=== PATIENT | female | born 1985 | race Caucasian/White ===

== ENCOUNTER 2024-10-23 11:01 | Emergency (ER) | payer MEDICAID, SELFPAY ==
[2024-10-23 11:09] VITALS: BP 113/64; PULSE 67; RESP 18; TEMP 36.6; O2SAT 98; BMI 28.1
--- NOTE | 2024-10-23 11:12 | ED.FEMALEGU ---
HPI - Female Genitourinary General Time Seen by Provider: 11:12 Date Seen: 10/23/24 Chief complaint: Urogenital Problems, Female Stated complaint: IUD, cramps, need taken out? Time Seen by Provider: 10/23/24 11:03 Source: patient and RN notes reviewed Mode of arrival: ambulatory Limitations: no limitations History of Present Illness HPI Narrative: This 39-year-old female is coming into the ER with increased right lower quadrant pain with IUD placement. The cramping in pain is making her nauseated. She has had no fevers or chills. She had her IUD placed August 13 due to bleeding issues, has had ongoing spotting and cramping since placed. She has not done any IUD string checks. She has had no bowel changes such as diarrhea. No vomiting, no fevers or chills, change in urination. She states she wanted the IUD removed since it was placed, it is not helping. Symptoms for her per her report. She had no difficulty with this being placed per her report, was not significantly painful for her. Related Data Home Medications ?Medication ?Instructions ?Recorded ?Confirmed buspirone 10 mg tablet 10 mg PO BID 10/23/24 10/23/24 hydroxyzine pamoate 50 mg capsule 50 mg PO QHS 10/23/24 10/23/24 topiramate 100 mg tablet (Topamax) 100 mg PO QHS 10/23/24 10/23/24 Allergies Allergy/AdvReac Type Severity Reaction Status Date / Time ibuprofen Allergy Intermediate Hives Verified 10/23/24 11:18 ciprofloxacin Allergy Hives Verified 10/23/24 11:18 Review of Systems Narrative: As per HPI. Exam Const: Vital Signs, click to edit/add: Vital Signs - 24 hr 10/23/24 11:09 Temperature 97.9 F Pulse Rate [Pulse Oximeter] 67 Respiratory Rate 18 Blood Pressure [Ri ght Upper Arm] 113/64 Pulse Oximetry 98 Oxygen Delivery Me thod Room Air This 39-year-old female is alert, interactive, no apparent distress. Ambulatory into the ED with normal gait. Sclera clear, face atraumatic, able speak in complete sentences. Abdomen is soft, nontender, nondistended. Bimanual exam reveals some mild right pelvic discomfort but no rebound or guarding, question if there is maybe a little bit of fullness to this right ovary, uterus nontender, midline, no left lower quadrant tenderness or masses noted. Normal external genitalia without any rash or lesions, vaginal mucosa has a scant amount of darkish blood. Cervix is visualized, cannot see any strings, no active bleeding noted. Did take a small Q-tip and cannot pull any strings out of the endocervical canal. Bimanual exam does not feel any palpable strings either. Documenting provider has reviewed patient's vital signs: yes Course Course ED Course: Patient does need to proceed with pelvic ultrasound for both IUD placement as well as rule out right ovarian cyst. If pelvic ultrasound is completely normal, will consider other entities and consider lab work and CT imaging. Reevaluation(s) Time of Reevaluation #1: 12:15 Reevaluation #1: Have reviewed with the patient that the preliminary ultrasound per the manager net is that the IUD is in place, normal ovaries, no ovarian cyst. She has not had appendectomy, did discuss that appendix is a consideration with right lower quadrant pain. She would like to proceed with CT imaging and lab work. She understands that she will need an IV placed as a CT does require IV contrast. Time of Reevaluation #2: 13:27 Reevaluation #2: Provided patient a copy of her CT and did review this. There is no acute intra-abdominal pathology. She does have 2 undefined areas on her liver which follow-up outpatient imaging is recommended, again, given a copy of the CT to bring to her primary care provider. She did state that she needs to know everything she was given here, is on parole. Reviewed the only medicine given was actually not technically a medicine but IV contrast for her CT imaging. She will need to follow up with her OB Gyne specialist for removal of her IUD. Vital Signs Vital signs: Initial Vital Signs Temperature 97.9 F 10/23/24 11:09 Temperature Source Temporal Artery Scan 10/23/24 11:09 Pulse Rate 67 10/23/24 11:09 Respiratory Rate 18 10/23/24 11:09 Blood Pressure 113/64 10/23/24 11:09 Blood Pressure Mean 80 10/23/24 11:09 Pulse Oximetry 98 10/23/24 11:09 Oxygen Delivery Method Room Air 10/23/24 11:09 Vital Signs Temperature 97.9 F 10/23/24 11:09 Pulse Rate 67 10/23/24 11:09 Respiratory Rate 18 10/23/24 11:09 Blood Pressure 113/64 10/23/24 11:09 Pulse Oximetry 98 10/23/24 11:09 Oxygen Delivery Method Room Air 10/23/24 11:09 Temperature 97.9 F 10/23/24 11:09 Pulse Rate 67 10/23/24 11:09 Respiratory Rate 18 10/23/24 11:09 Blood Pressure 113/64 10/23/24 11:09 Pulse Oximetry 98 10/23/24 11:09 Oxygen Delivery Method Room Air 10/23/24 11:09 MDM - Female Genitourinary Lab Data Attestation: I reviewed the patient's lab results. Labs: Lab Results 10/23/24 10/23/24 Range/Units 11:41 12:30 WBC 6.98 (4.50-11.00) K/uL RBC 4.54 (4.00-5.20) m/uL Hgb 12.6 (12.0-16.0) gm/dL Hct 39.4 (33.0-51.0) % MCV 87 (80-100) fL MCH 28 (26-34) pg MCHC 32 (32-36) gm/dL RDW Coeff of Marc 15.4 (11.5-15.5) % Plt Count 325 (140-440) K/uL Neut % (Auto) 48.6 (42.0-72.0) % Lymph % (Auto) 41.5 (20-44) % Toole % (Auto) 6.2 (0.0-11.0) % Eos % (Auto) 2.9 (0.0-7.0) % Baso % (Auto) 0.4 (0.0-3.0) % Neut # (Auto) 3.39 (1.7-7.0) K/uL Lymph # (Auto) 2.90 (0.90-2.90) K/uL Toole # (Auto) 0.40 (0.00-0.90) K/UL Eos # (Auto) 0.20 (0.00-0.50) K/uL Baso # (Auto) 0.03 (0.00-0.30) K/uL Abs Immat Gran (auto) 0.03 (0.00-0.30) K/uL Imm/Tot Granulo (auto) 0.4 % Sodium 140 (135-149) mmol/L Potassium 4.0 (3.6-5.1) mmol/L Chloride 110 (96-114) mmol/L Carbon Dioxide 23 (20-32) mmol/L Anion Gap 7 (7-15) mEq/L BUN 15 (5-24) mg/dL Creatinine 0.8 (0.5-1.5) mg/dL Estimated Creat Clear 95.24 Estimated GFR 96 ml/min Glucose 82 (60-115) mg/dL Lactate 1.6 (0.5-1.9) mmol/L Calcium 8.9 (8.4-10.6) mg/dL C-Reactive Protein < 0.5 L (0.5-1.0) mg/dL Urine HCG, Qual Negative (Negative) Imaging Data US pelvis: Attestation: I have reviewed the pertinent imaging results. Radiologist's impression: Patient: BEKA DOTSON Facility:?[facility] Patient ID:?[id number] Site Patient ID:?[id number]. Site :?[id number] Study:?US-Pelvis TRANSVAGINAL W/ DOPPLER-10/23/2024 12:17:03 PM Ordering Physician:Lupe Lu Final Report: INDICATION: Mirena IUD with increasing right lower quadrant pain, can not find strings TECHNIQUE: Ultrasound pelvis transabdominal and transvaginal for better assessment or to better visualize the endometrium. Real-time sonographic images with spectral and color Doppler imaging of the ovaries were obtained. COMPARISON: None. FINDINGS: Uterus: 9.4 x 4 x 5.1 cm. Normal echotexture of the myometrium. No masses. Endometrium: Transvaginal imaging was performed to better evaluate the endometrium. Endometrial thickness measures 5 mm. No sign of endometrial mass or fluid. IUD is present with wings located in the endometrial canal at the fundus of the uterus. Right ovary 3.5 x 1.8 x 2 centimeters. Left ovary 4.6 x 2.1 x 2.6 centimeters. No ovarian or adnexal masses. Normal arterial and venous blood flow is demonstrated in both ovaries. Cul-de-sac: No significant free fluid. IMPRESSION: Normal uterus with IUD in expected location. Normal ovaries. Dictated by Miranda Terry MD @ 10/23/2024 1:01:43 PM (Electronic Signature) CT scan - abdomen: Attestation: I have reviewed the pertinent imaging results. Radiologist's impression: Patient: BEKA DOTSON Facility:?[facility] Patient ID:?[id number] Site Patient ID:?[id number]. Site :?[id number] Study:?CT-Abdomen/Pelvis W/ 91CC [id number] 12:48:12 PM Ordering Physician:?Aurea Lu Final Report: INDICATION: Right lower quadrant pain, nausea TECHNIQUE: CT abdomen and pelvis acquired with 91 cc Isovue 370 IV contrast. COMPARISON: None. FINDINGS: Lower chest: Unremarkable. Liver: Noncirrhotic liver. There is a 1.1 x 1 centimeter intermediate density lesion in segment 4B (2/50). There is a 1.6 x 1.5 centimeter hypodense lesion in segment 6 of the liver (2/52) with peripheral discontinuous nodularity, likely hemangioma. Scattered subcentimeter hypodense lesions, likely cysts. Gallbladder and bile ducts: Unremarkable. No stones or inflammation. No biliary dilatation. Pancreas: Unremarkable. No mass or inflammation. Spleen: Subcentimeter hypodense lesion in the spleen (2/40), likely cyst or small hemangioma. Adrenal glands: Unremarkable. No nodules. Kidneys: Unremarkable. No suspicious masses, stones, or hydronephrosis. GI tract: No obstruction. Normal appendix. Vasculature: Abdominal aorta is normal in caliber. Mesenteric arteries are patent. Lymph nodes: No lymphadenopathy. Peritoneum/Abdominal Wall: Small fat containing umbilical hernia. Pelvis: IUD is present in the uterus. Bones: Unremarkable for age. IMPRESSION: No acute intra-abdominal or intrapelvic pathology to explain symptoms. There is a 1 centimeter hepatic lesion in segment 4B of the liver, which is intermediate in density. Consider nonemergent multiphase CT of the liver or MR of the abdomen with Eovist for further characterization. There is also a segment 6 lesion with peripheral nodular discontinuous enhancement, likely hemangioma, but can be further characterized on this suggested follow-up imaging. Please note that all CT scans at this facility use dose modulation, iterative reconstruction, and/or weight-based dosing when appropriate to reduce radiation dose to as low as reasonably achievable. Dictated by Miranda Terry MD @ 10/23/2024 1:10:00 PM (Electronic Signature) Discharge Plan Discharge Clinical Impression: Acute right lower quadrant pain, Presence of Mirena IUD Patient Disposition: Home, Self-Care Condition: Stable Instructions: Intrauterine Device (DC) Additional Instructions: Will need to follow up with your clinical instructor to discuss and plan for IUD removal as I could not feel or see the IUD strings today. Ultrasound did show normal placement. Note provided to be off work. You were only given IV contrast for your CT scan. Can use Tylenol if needed for discomfort or cramping from the Marine IUD. There is no evidence of ovarian cyst at this time. Do need to take the CT report with incidental findings of the 2 liver lesions and have follow-up outpatient imaging as advised by Radiology. These are likely benign liver lesions but do need follow-up imaging per the radiology recommendation to confirm this. Activity Level: Activity as Tolerated Prescriptions: No Action hydroxyzine pamoate 50 mg capsule 50 mg PO QHS topiramate [Topamax] 100 mg tablet 100 mg PO QHS buspirone 10 mg tablet 10 mg PO BID Follow Up/Referrals: Provider,Not a Local [Primary Care Provider] - Stand Alone Forms: [employer] Info Instructions
--- NOTE | 2024-10-23 11:27 | CRLHL7_ITS ---
For Patients: As a result of the Century Cures Act, medical imaging exams and procedure reports are released immediately into your electronic medical record. You may view this report before your referring provider. If you have questions, please contact your health care provider. INDICATION: Mirena IUD with increasing right lower quadrant pain, can not find strings TECHNIQUE: Ultrasound pelvis transabdominal and transvaginal for better assessment or to better visualize the endometrium. Real-time sonographic images with spectral and color Doppler imaging of the ovaries were obtained. COMPARISON: None. FINDINGS: Uterus: 9.4 x 4 x 5.1 cm. Normal echotexture of the myometrium. No masses. Endometrium: Transvaginal imaging was performed to better evaluate the endometrium. Endometrial thickness measures 5 mm. No sign of endometrial mass or fluid. IUD is present with wings located in the endometrial canal at the fundus of the uterus. Right ovary 3.5 x 1.8 x 2 centimeters. Left ovary 4.6 x 2.1 x 2.6 centimeters. No ovarian or adnexal masses. Normal arterial and venous blood flow is demonstrated in both ovaries. Cul-de-sac: No significant free fluid. IMPRESSION: Normal uterus with IUD in expected location. Normal ovaries. Dictated by Miranda Terry MD @ 10/23/2024 1:01:43 PM (Electronically Signed)
[2024-10-23 11:48] LABS: Ur HCG Qualitative* Negative (Negative)
--- NOTE | 2024-10-23 12:14 | CRLHL7_ITS ---
For Patients: As a result of the Century Cures Act, medical imaging exams and procedure reports are released immediately into your electronic medical record. You may view this report before your referring provider. If you have questions, please contact your health care provider. INDICATION: Right lower quadrant pain, nausea TECHNIQUE: CT abdomen and pelvis acquired with 91 cc Isovue 370 IV contrast. COMPARISON: None. FINDINGS: Lower chest: Unremarkable. Liver: Noncirrhotic liver. There is a 1.1 x 1 centimeter intermediate density lesion in segment 4B (2/50). There is a 1.6 x 1.5 centimeter hypodense lesion in segment 6 of the liver (2/52) with peripheral discontinuous nodularity, likely hemangioma. Scattered subcentimeter hypodense lesions, likely cysts. Gallbladder and bile ducts: Unremarkable. No stones or inflammation. No biliary dilatation. Pancreas: Unremarkable. No mass or inflammation. Spleen: Subcentimeter hypodense lesion in the spleen (2/40), likely cyst or small hemangioma. Adrenal glands: Unremarkable. No nodules. Kidneys: Unremarkable. No suspicious masses, stones, or hydronephrosis. GI tract: No obstruction. Normal appendix. Vasculature: Abdominal aorta is normal in caliber. Mesenteric arteries are patent. Lymph nodes: No lymphadenopathy. Peritoneum/Abdominal Wall: Small fat containing umbilical hernia. Pelvis: IUD is present in the uterus. Bones: Unremarkable for age. IMPRESSION: No acute intra-abdominal or intrapelvic pathology to explain symptoms. There is a 1 centimeter hepatic lesion in segment 4B of the liver, which is intermediate in density. Consider nonemergent multiphase CT of the liver or MR of the abdomen with Eovist for further characterization. There is also a segment 6 lesion with peripheral nodular discontinuous enhancement, likely hemangioma, but can be further characterized on this suggested follow-up imaging. Please note that all CT scans at this facility use dose modulation, iterative reconstruction, and/or weight-based dosing when appropriate to reduce radiation dose to as low as reasonably achievable. Dictated by Miranda Terry MD @ 10/23/2024 1:10:00 PM (Electronically Signed)
[2024-10-23 12:40] LABS: Lactate* 1.6 mmol/L (0.5-1.9)
[2024-10-23 12:41] LABS: Basophils Absolute Auto 0.03 K/uL (0.00-0.30); Basophils Percent Auto 0.4 % (0.0-3.0); Eosinophils Percent Auto 2.9 % (0.0-7.0); Hematocrit 39.4 % (33.0-51.0); Hemoglobin* 12.6 gm/dL (12.0-16.0); Immature Granulocytes Abs Auto 0.03 K/uL (0.00-0.30); Immature Granulocytes Pct Auto 0.4 %; Lymphocytes Percent Auto 41.5 % (20-44); Mean Corpuscular HGB Conc 32 gm/dL (32-36); Mean Corpuscular Hemoglobin 28 pg (26-34); Mean Corpuscular Volume 87 fL (80-100); Monocytes Percent Auto 6.2 % (0.0-11.0); Neutrophils Absolute Auto 3.39 K/uL (1.7-7.0); Neutrophils Percent Auto 48.6 % (42.0-72.0); Platelet Count* 325 K/uL (140-440); RDW Coefficient of Variation % 15.4 % (11.5-15.5); Red Blood Count 4.54 m/uL (4.00-5.20); White Blood Count* 6.98 K/uL (4.50-11.00)
[2024-10-23 12:56] LABS: Slide Review Reflex No
[2024-10-23 12:57] LABS: Chloride* 110 mmol/L (96-114)
[2024-10-23 12:58] LABS: Sodium* 140 mmol/L (135-149)
[2024-10-23 13:00] LABS: Creatinine* 0.8 mg/dL (0.5-1.5); Est. Creatinine Clearance* 95.24; Estimated Glomerular Filt Rate 96 ml/min
[2024-10-23 13:01] LABS: Anion Gap 7 mEq/L (7-15); Blood Urea Nitrogen* 15 mg/dL (5-24); Calcium* 8.9 mg/dL (8.4-10.6); Carbon Dioxide* 23 mmol/L (20-32); Glucose* 82 mg/dL (60-115)
[2024-10-23 13:08] LABS: C Reactive Protein* < 0.5 mg/dL (0.5-1.0)
== END 2024-10-23 13:47 | disposition home or self-care (01) ==
PROVIDERS: Emergency Provider Family Medicine
DX: R10.31 Right lower quadrant pain (principal); Z97.5 Presence of (intrauterine) contraceptive device
CPT/HCPCS: 36415; 74177; 76830; 80048; 81025; 83605; 85025; 86140; 93976; 99284; 99285; Q9967

== ENCOUNTER 2024-11-25 18:59 | Emergency (ER) | payer MEDICAID, SELFPAY ==
[2024-11-25 19:19] VITALS: BP 96/61; PULSE 103; RESP 16; TEMP 36.1; O2SAT 99; BMI 29.6
[2024-11-25 20:42] LABS: PCR FLU A Negative PCR FLU A (Negative); PCR FLU B Negative PCR FLU B (Negative); PCR RSV Negative PCR RSV (Negative); SARS PCR* Negative SARS-CoV-2 (Negative)
--- NOTE | 2024-11-25 21:42 | ED.NAVMDI ---
HPI - Nausea/Vomiting/Diarrhea General Chief complaint: Nausea/Vomiting Stated complaint: vomiting Time Seen by Provider: 11/25/24 21:35 History of Present Illness HPI Narrative: This 39-year-old female comes in reporting nausea, vomiting, and diarrhea that started about 3 or 4 hours prior to arrival. She arrives here with normal vital signs but does have mild tachycardia with a pulse of 103 beats per minute. She does not report any fevers, cough, or shortness of breath. Related Data Previous Rx's ?Medication ?Instructions ?Recorded ondansetron HCl 4 mg tablet 4 mg PO Q6H #10 tabs 11/25/24 Allergies Allergy/AdvReac Type Severity Reaction Status Date / Time ibuprofen Allergy Verified 11/25/24 19:23 Review of Systems Status of ROS: Reports: 10 or more systems reviewed and unremarkable except as noted in History and below Narrative: Constitutional: No fevers, no weight gain or loss. Eyes: No discharge. No vision changes. HENT: No congestion, no sore throat, no ear pain. Cardiovascular: No chest pain, no palpitations. Respiratory: No shortness of breath, no wheezes, no cough. Gastrointestinal: Nausea, vomiting, and diarrhea. Genitourinary: No dysuria, no hematuria. Musculoskeletal: Normal range of motion. Skin: No rashes, no pruritis. Neurological: No dizziness, weakness, sensory change, speech change. Endo/Heme/Allergies: No bruising or bleeding. No polydipsia. Pysch: no suicidality, no anxiety, no insomnia. All other systems reviewed and are negative. Exam Narrative: Exam Narrative: Constitutional: Well-developed, well-nourished, no acute distress. HEENT: Normocephalic, atraumatic. Neck: Normal range of motion. Nontender. Supple. Heart: Intact distal pulses. Borderline tachycardia. Lungs: No chest discomfort. No wheezes, rhonchi, or rales. Abdomen: Nontender. Back: Normal range of motion. Extremities: Normal range of motion. No injury. Skin: Intact. No rash. Warm. No erythema or pallor. Neurologic: No altered sensation. No weakness. Alert and oriented. Psychiatric: No suicidality. No anxiety or depression. No insomnia. Nursing notes and vitals signs are reviewed. Const: Vital Signs, click to edit/add: Vital Signs - 24 hr 11/25/24 19:19 11/25/24 22:30 Temperature 97 F L Pulse Rate [Femora l] 103 H 81 Respiratory Rate 16 16 Blood Pressure [Ri ght Upper Arm] 96/61 118/51 L Pulse Oximetry 99 98 Oxygen Delivery Me thod Room Air Course Vital Signs Vital signs: Initial Vital Signs Temperature 97 F L 11/25/24 19:19 Temperature Source Temporal Artery Scan 11/25/24 19:19 Pulse Rate 103 H 11/25/24 19:19 Respiratory Rate 16 11/25/24 19:19 Blood Pressure 96/61 11/25/24 19:19 Blood Pressure Mean 72 11/25/24 19:19 Blood Pressure Position Sitting 11/25/24 19:19 Pulse Oximetry 99 11/25/24 19:19 Oxygen Delivery Method Room Air 11/25/24 19:19 Vital Signs Temperature 97 F L 11/25/24 19:19 Pulse Rate 103 H 11/25/24 19:19 Respiratory Rate 16 11/25/24 19:19 Blood Pressure 96/61 11/25/24 19:19 Pulse Oximetry 99 11/25/24 19:19 Oxygen Delivery Method Room Air 11/25/24 19:19 Temperature 97 F L 11/25/24 19:19 Pulse Rate 81 11/25/24 22:30 Respiratory Rate 16 11/25/24 22:30 Blood Pressure 118/51 L 11/25/24 22:30 Pulse Oximetry 98 11/25/24 22:30 Oxygen Delivery Method Room Air 11/25/24 19:19 Medications Administered Medications: Discontinued Medications Generic Name Dose Route Start Last Admin Trade Name Freq PRN Reason Stop Dose Admin Sodium Chloride 1,000 mls @ 1,000 mls/hr 11/25/24 21:45 11/25/24 22:08 0.9 % Sodium Chloride 1000 Ml IV 11/25/24 22:44 1,000 mls/hr .Q1H CHRISTOPHER Administration Ketorolac Tromethamine 15 mg 11/25/24 21:42 11/25/24 22:08 Ketorolac 30 Mg/Ml Inj IVP 11/25/24 21:43 15 mg ONCE ONE Administration Ondansetron HCl 4 mg 11/25/24 21:42 11/25/24 22:08 Ondansetron 2 Mg/Ml Inj IVP 11/25/24 21:43 4 mg ONCE ONE Administration MDM - Nausea/Vomiting/Diarrhea MDM Narrative Medical decision making narrative: This patient comes in with vomiting and diarrhea as described above. She does have borderline tachycardia. An IV was established where she received a L of normal saline, Toradol 15 mg, and Zofran 4 mg. This brought significant relief to her symptoms. She is okay to be discharged home. She did received prescription for Zofran. Lab Data Labs: Lab Results 11/25/24 Range/Units 19:23 SARS-CoV-2 (PCR) Negative SARS-CoV-2 (Negative) Influenza Type A (PCR) Negative PCR FLU A (Negative) Influenza Type B (PCR) Negative PCR FLU B (Negative) RSV (PCR) Negative PCR RSV (Negative) Discharge Plan Discharge Clinical Impression: Gastroenteritis Patient Disposition: Home, Self-Care Condition: Improved Additional Instructions: Take medication as needed and indicated. Take frequent sips of fluids and increase diet otherwise as tolerated. Follow up with MD return if worsening. Prescriptions: New ondansetron HCl 4 mg tablet 4 mg PO Q6H Qty: 10 0RF Follow Up/Referrals: Provider,Not a Local [Primary Care Provider] - Stand Alone Forms: [employer] Info Instructions
--- OUTSIDE RECORDS SUMMARY | 2024-11-25 21:57 | XMS_ITS | Clinical Summary ---
Author Organization [facility] Address [place], [place] [address] Care Team Providers Care Automotive Accessory Installer Name Role Phone Farzana Sliva DO Primary Care Provide r Allergies Active Allergy Reactions Criticality Noted Date Comments Atomoxetine Edema 03/07/2022 Ciprofloxacin Rash 06/06/2008 Ibuprofen Rash Medium 10/31/2006 Patient tolerates naproxen without any side effects. Cadence Caldera PA-C, Family Medicine.....................08/26/20 17 6:20 PM Medications albuterol HFA (PRO-AIR; VENTOLIN; PROVENTIL) 90 mcg/actuation inhalerIndications :Mild intermittent asthma without complication Inhale 1-2 Puffs by mouth every 4 hours if needed for Shortness Of Breath or Wheezing. 1 Each 3 3 Active busPIRone (BUSPAR) 15 mg tabletIndications: ELIZABETH (generalized anxiety disorder) Take 1 Tablet (15 mg) by mouth two times daily. 180 Tablet 3 3 Active topiramate (TOPAMAX) 25 mg tabletIndications: Migraine without aura and without status migrainosus, not intractable Take 1 Tablet (25 mg) by mouth at bedtime. 90 Tablet 3 3 Active buPROPion (Wellbutrin XL) 150 mg Extended-Release tabletIndications: Major depressive disorder, recurrent episode, mild (HC) Take 1 Tablet (150 mg) by mouth once daily in the morning. 30 Tablet 1 4 Active hydrOXYzine HCL (ATARAX) 50 mg tabletIndications: Insomnia, idiopathic Take 50 mg at bedtime 4 Active omeprazole 20 mg tabletIndications: Gastroesophageal reflux disease, unspecified whether esophagitis present Take 1 Tablet (20 mg) by mouth once daily. 90 Tablet 3 4 Active lisdexamfetamine (Vyvanse) 20 mg capsuleIndications :ADHD (attention deficit hyperactivity disorder), combined type Take 1 Capsule (20 mg) by mouth once daily. 30 Capsule 4 11/25/19 25 Active Active Problems Problem Noted Date Diagnosed Date Lesion of liver greater than 1 cm in diameter Overview (10/26/2024): 10/26/24: found on CT for abd pain (that has resolved). 1.1 x 1 cm intermediate density lesion in segment 4B. Also 1.6x1.5 cm hypodense in segment 6. Recommended further imaging . Scattered subcentimeter hypodense lesions, likely cysts Umbilical hernia, incidental on CT 10/26/2024 Overview (10/26/2024): 10/26/24: Small, fat containing. Noted on CT. Asymptomatic. Lesion of spleen on CT 10/26/2024 Overview (10/26/2024): 10/26/[address] subcentimeter, hypodense. Likely cyst or hemangioma. No further follow up needed Migraine without aura and wi thout status migrainosus, not intractable 06/10/2021 Learning disabilities 01/15/2021 History of drug use 07/21/2020 Overview (10/26/2024): Methamphetamine, marijuana. Currently sober for 2 years. 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 Mild intermittent asthma without complication ELIZABETH (generalized anxiety disorder) 06/27/2017 PTSD (post-traumatic stress disorder) 06/27/2017 Major depressive disorder, recurrent episode, mi ld 01/02/2015 ADHD (attention deficit hype ractivity disorder), combined type 01/02/2015 Vitamin D deficiency 11/25/2014 EKATERINA III (cervical intraepith elial neoplasia grade III) with severe dysplasia 10/31/2006 Overview (11/11/2023): colpo multiple 09/2002 LEEP EKATERINA I, margins clear 04/2008 LEEP EKATERINA 2-3, endocervical margin positive 11/2014 NIL/HPV+ 08/2016 NIL/HPV Negative 05/2020 NIL/HPV Negative Plan: Pap/HPV due 05/2023 Resolved Problems Problem Noted Date Diagnosed Date Resolved Date TMJ tenderness, right 06/10/20212023 Polysubstance dependence 06/18/201809/2020 Trichomonas infection 08/30/20162016 Methamphetamine abuse 03/22/20162019 Overview (08/14/2016): in remission 07/2016 Marijuana abuse 03/15/2015 01/17/2021 Overview (08/14/2016): in remission 07/2016 Contraception 11/23/2014 10/26/2024 Cervical high risk HPV (ronald n papillomavirus) test positive 11/23/2014 11/11/2023 Overview (09/02/2016): 11/23/2014 Pap NIL 08/14/2016 Pap: NIL/HPV negative; Plan: Pap/HPV in 3 years (08/2019) Chlamydia trachomatis infect ion of lower genitourinary sites 05/15/2012 11/23/2014 Supervision of other normal 07/11/2010 11/23/2014 Encounters Date Type Department Care Team Description 11/17/2024 3:03 PM PICTURE BOOKER - 11/17/2024 11:59 PM PICTURE BOOKER Hospital Encounter [facility] [address] [place] [address] Farzana Silva DO Lesion of liver greater than 1 cm in diameter 11/17/2024 Travel 11/08/2024 Telephone [facility] [address] [place] [address] Farzaan Silva DO Form 10/26/2024 10:25 AM PICTURE BOOKER Office Visit [facility] [address] Farzana Silva, Follow Up (post hospital DOD 10/23/2024); Medication Management (med rec. Is taking vyvance, discuss refill) 10/26/2024 Travel from Last 3 Months Immunizations Name Administration Dates Next Due COVID-19 vaccine ([employer]-Bio NTech 30mcg/0.3mL) 12YO+ GERALDINE-SUCROSE PF, MDV 11/22/2022 DTaP 10/05/2007, 1,09/15/1990,1987,04/06/1986,1985 Hepatitis B (Adult) 03/26/2006,04/25/2005,2004 Hepatitis B, Unspecified 03/26/2006,04/25/2005,0 03/18/2005 Influenza A (H1N1), Inactiva michele (Age >=3 Years) 09/29/2009 Influenza Virus, Unspecified 08/22/2010,10/05/20 07 Influenza, IIV3 (Age >=3 years) 08/26/20 23,10/30/2014,08/22/2010,2009,10/05/2007 Influenza, IIV4 11/22/2022 Influenza, IIV4 (=>6mos) MDV 11/01/2014 MMR 06/29/1998,01/01/1988 Oral Polio Vaccine 03/22/1991, 8,04/06/1986,1985 Td (Age >=7 Years) 06/29/1998 Tdap 03/05/2024, 6,03/10/2010,2006 Family History Medical History Relation Name Comments Good Health Brother 1 Good Health Brother 2 Good Health Brother 3 Good Health Brother 4 Good Health Brother 5 Stroke Maternal Aunt 1 Cancer Maternal Aunt 2 cervicle Cancer Maternal Aunt 3 MGrt Aunt-br east Cancer Maternal Grandmother cervicl e Stroke Maternal Grandmother Cancer Mother cervicle, uteri ne Hypertension Mother Stroke Mother Good Health Sister 1 Good Health Sister 2 Good Health Sister 3 Good Health Sister 4 Relation Name Status Comments Brother 1 Brother 2 Brother 3 Brother 4 Brother 5 Maternal Aunt 1 Maternal Aunt 2 Maternal Aunt 3 Maternal Grandmother Mother Sister 1 Sister 2 Sister 3 Sister 4 Social History Tobacco Use Types Packs/Day Years Used Date Smoking Tobacco: Former Cigarettes Q uit: 12/30/2011 Smokeless Tobacco: Never Tobacco Cessation:Counseling Given: Not Answered Comments:7 a day Alcohol Use Standard Drinks/Week Comments Not Currently 0 (1 standard drink = 0.6 oz pur e alcohol) PHQ-2 Answer Date Recorded PHQ-2 TOTAL SCORE 2 10/26/2024 Financial Resource Strain Answer Date R ecorded Difficulty of Paying Living Expenses Not on file 11/06/2021 Difficulty of Paying Living Expenses Not on file 11/06/2021 Comments No Sex and Gender Information Value Date Recorded Sex Assigned at Not on file Legal Sex Female 6:29 AM PICTURE BOOKER Gender Identity Not on file Sexual Orientation Not on file Occupation Industry Job Start Date Job End Date not working Not on file Not on file Not on file Not on file Not on file Not on file Not on file Obstetrics History Para Term AB IAB SAB Ectopic Multiple Livin g Live Births 2 1 0 1 0 Date Outcome GA Total Labor Labor/2nd/3rd Weight Sex Type Anes PTL Francisca A1 A5 Name Clin Comments:System Genera michele. Please review and update details. 03/06/20 10 34w 0d M [place] Comments:hypoplastic l eft heart, IUFD Last Filed Vital Signs Vital Sign Reading Time Taken Comments Blood Pressure 102/64 10/26/2024 10:59 AM PICTURE BOOKER Pulse 68 10/26/2024 10:59 AM PICTURE BOOKER Temperature 36.6 C (97.9 F) 03/10/2023 5:35 PM CDT Respiratory Rate 18 03/10/2023 5:35 PM CDT Oxygen Saturation 99% 03/10/2023 7:45 PM CDT Inhaled Oxygen Concentration - - Weight 88 kg (194 lb) 10/26/2024 10:59 AM PICTURE BOOKER Height 167.6 cm (5' 6) 03/10/2023 5:35 PM CDT Body Mass Index 31.31 03/10/2023 5:35 PM CDT Plan of Treatment Upcoming Encounters Date Type Department Care Team (Late st Contact Info) Description 11/26/2024 12:35 PM PICTURE BOOKER Office Visit [facility] [address] [place] [address] Farzana Silva, DO [address] [facility] [address] Health Maintenance Due Date Last Done Comments Pap test for age 21-65 05/18/2023 0, 05/18/2020, 08/14/2016, Additional history exists BMI (ht and wt on same day) for age 18+ 12/27/2023 12/27/2022, 11/22/2022, 06/07/2021, Additional history exists COVID-19 vaccine series ( season) 2024 11/22/2022 Influenza for age 9-49 07/11/2024 3, 11/22/2022, 11/01/2014, Additional history exists Depression screening for age 12+ 10/26/2025 10/26/2024, 11/22/2022, 11/06/2021, Additional history exists Tetanus booster 03/05/2034 03/05/2024, 02/0 04/2016, 03/10/2010, Additional history exists HIV for age 15-65 Completed 11/23/2014, 05/14/2012 Hepatitis C screening for age 18-79 Completed 11/23/2014, 05/14/2012 Tdap Completed 03/05/2024, 02/0 04/2016, 03/10/2010, Additional history exists Pneumococcal series for age 6-49 Aged Out No longer eligible based on patient's age to complete this topic Procedures Procedure Name Priority Date/Time Associated Diagnosis Comments MR ABDOMEN LIVER WWO Routine 11/17/2024 3:45 PM PICTURE BOOKER Lesion of liver greater than 1 cm in diameter BASS GUITAR TEACHER THIN PREP PAP SCREEN IMAGED Routine 05/18/2020 1:47 PM CDT Screening for malignant neoplasm of cervix ANTI HIV 1/2 Routine 11/23/2014 3:42 PM PICTURE BOOKER Screening examination for venereal disease ANTI HCV Routine 11/23/2014 3:42 PM PICTURE BOOKER Screening examination for venereal disease from Last 3 Months or Most Recently Relevant to Health Maintenance Results * MR ABDOMEN LIVER WWO (11/17/2024 3:45 PM PICTURE BOOKER) Anatomical Region Laterality Modality Abdomen, LIVER Magnetic Resonan ce 11/18/2024 12:3 1 PM PICTURE BOOKER Impressions 11/18/2024 12:31 PM PICTURE BOOKER 1. 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 Variable flow and progressive enhancement. 2. Incidental splenic cyst. Dictated by Estevan Rivas MD @ 11/18/2024 12:31:33 PM (Electronically Signed) Narrative 11/18/2024 12:31 PM PICTURE BOOKER For Patients: As a result of the Cures Act, medical imaging exams and procedure reports are released immediately into your electronic medical record. You may view this report before your referring provider. If you have questions, please contact your health care provider. INDICATION: Characterization of liver lesions. TECHNIQUE: Abdominal MRI T1-T2 and post-contrast T1. Diffusion weighting. Contrast: Intravenous gadoliniumDotarem 20 cc. COMPARISON : CT scan abdomen 10/23/2024 FINDINGS: Liver: Non cirrhotic morphology. Scattered lesions which correlate with the CT scan. Largest is in segment . 1.6 centimeters. Hypo/hyperintense on T1/T2. Peripheral gadolinium enhancement which is nodular. The lesions show variable progressive enhancement on delayed imaging. Example segment series 31, image 58. Biliary tree:Gallbladder unremarkable, normal caliber intra and extrahepatic ducts. Spleen, pancreas, adrenal glands: Small splenic cyst 1 centimeter posterior medial example series 31, image 46. Kidneys:Unremarkable, no masses or hydronephrosis. Lymph nodes: No suspicious adenopathy. Ascites: Absent. Procedure Note Estevan Rivas MD - 11/18/2024 For Patients: As a result of the Cures Act, medical imagingexams and procedure reports are released immediately into your electronicmedical record. You may view this report before your referring provider.If you have questions, please contact your health care provider. INDICATION: Characterization of liver lesions. TECHNIQUE: Abdominal MRI T1-T2 and post-contrast T1. Diffusion weighting. Contrast: Intravenous gadoliniumDotarem 20 cc. COMPARISON : CT scan abdomen 10/23/2024 FINDINGS: Liver: Non cirrhotic morphology. Scattered lesions which correlate with the CTscan. Largest is in segment . 1.6 centimeters. Hypo/hyperintense on T1/T2. Peripheral gadoliniumenhancement which is nodular. The lesions show variable progressive enhancement on delayed imaging. Example segment series 31, image 58. Biliary tree:Gallbladder unremarkable, normal caliber intra andextrahepatic ducts. Spleen, pancreas, adrenal glands: Small splenic cyst 1 centimeter posterior medial example series 31, image46. Kidneys:Unremarkable, no masses or hydronephrosis. Lymph nodes: No suspicious adenopathy. Ascites: Absent. IMPRESSION: 1. Multiple liver lesions with characteristics compatible with cavernoushemangiomas. Variable flow and progressive enhancement. 2. Incidental splenic cyst. Dictated by Estevan Rivas MD @ 11/18/2024 12:31:33 PM (Electronically Signed) Farzana Silva DO MR Final Result * BASS GUITAR TEACHER THIN PREP PAP SCREEN IMAGED (05/18/2020 1:47 PM CDT) Case Report Gynecologic Cytology Report Case: [id number] Authorizing Provider: Cadence Caldera PA Collected: 05/18/2020 1347 [facility]: 05/18/2020 1347 Clinic First Screen: Nelia Díaz Specimen: BASS GUITAR TEACHER ThinPrep Vial Screening, Cervical 05/23/2020 10:50 AM CDT 2,10E+07C [facility] INTERPRETATION/ RESULT NEGATIVE FOR INTRAEPITHELIAL LESION OR MALIGNANCY (NIL) (none) 05/23/2020 10:50 AM CDT 2,10E+07C [facility] NISM(S) Shift in john suggestive of bacterial vaginosis 05/23/2020 10:50 AM CDT 2,10E+07C [facility] SPECIMEN ADEQUACY Satisfactory for evaluation Endocervical component present 05/23/2020 10:50 AM CDT [facility] HPV REQUEST HPV if ASCUS 05/23/2020 10:50 AM CDT [facility] Date of LMP 04/24/2020 05/23/2020 10:50 AM CDT [facility] Last Pap Date 08/14/16 05/23/2020 10:50 AM CDT [facility] Last Pap Result NIL 0 10:50 AM CDT [facility] Abnormal Pap or [place] Bx in last 5 years No 05/23/2020 10:50 AM CDT [facility] Menstrual Status Regular Periods 05/23/2020 10:50 AM CDT [facility] [place] Bx Done Today No 05/23/2020 10:50 AM CDT [facility] Additional Information None given 05/23/2020 10:50 AM CDT [facility] Comment: Cytology is screened at [facility] - [address], [place] [address] and [facility] - [address], [place] [address] and [facility] - [address] [place] [address] [facility] - [address], [place] [address] Automated Review Successful 05/23/2020 10:50 AM CDT [facility] Comment:Specimen processed s uccessfully by automated parachute harness rigger device, ThinPrep Imaging System, [employer] Note The pap test is a screening technique, not a diagnostic procedure. It is used primarily to screen for squamous cancers and precursor lesions. Published studies have shown that it is subject to both false negative and false positive results. The pap test should not be used as the sole means to diagnose or exclude pre-malignant and malignant lesions. 05/23/2020 10:50 AM CDT [facility] Other (Cervical) Non-Blood / Unknown 05/18/2020 1:47 PM CDT 05/18/2020 1:47 PM CDT us Cadence COLLIER PATHOLOGY/CYTOLOGY Final R esult [facility] [address] [place] [address], * ANTI HCV (11/23/2014 3:42 PM PICTURE BOOKER) Pathologist [facility] HEPATITIS C ANTIBODY Non-Reacti ve Non-Reacti ve 11/24/2014 4:25 PM PICTURE BOOKER [facility] Blood specimen (specimen) BLOOD SPECIMEN / Unknown Venipuncture / Unknown 11/23/2014 3:42 PM PICTURE BOOKER 11/23/2014 3:[address] [facility] - 11/24/2014 4:25 PM PICTURE BOOKER Antibodies to HCV not detected; does not exclude the possibility of exposure to HCV. Aimee Tuttle NP SEND OUTS Final Result [facility] [address] [place] [address], * ANTI HIV 1/2 (11/23/2014 3:42 PM PICTURE BOOKER) Pathologist [facility] HIV-1/HIV-2 ANTIBODY Non-Reacti ve Non-Reacti ve 11/24/2014 4:33 PM PICTURE BOOKER [facility] Blood specimen (specimen) BLOOD SPECIMEN / Unknown Venipuncture / Unknown 11/23/2014 3:42 PM PICTURE BOOKER 11/23/2014 3:[address] [facility] - 11/24/2014 4:33 PM PICTURE BOOKER HIV-1 p24 and HIV-1/HIV-2 Ab not detected Aimee Tuttle NP SEND OUTS Final Result [facility] [address] [place] [address], from Last 3 Months or Most Recently Relevant to Health Maintenance Insurance [facility] AND FAMILY PLANS [facility] [place] * Guarantor: MARI PICKENS Account Type Relation to Patient Date of Phone Billing Address Personal/Family 2011 [address] [place] [address] * Guarantor: [facility] [employer] Account Type Relation to Patient Date of Phone Billing Address [facility]/Dennise Other FAMILY PLAN - [employer] [facility] [address] [place] [phone] * Guarantor: [employer] [place] [employer] ONLY Account Type Relation to Patient Date of Phone Billing Address [facility]ennise [address] [id number] [address] [place] [address] Care Teams Automotive Accessory Installer Relationship Specialty Start Date End Date Farzana Silva DO [address] [place] [address] PCP - General Family Practice 10/26/24
[2024-11-25] MEDS: 0.9 % SODIUM CHLORIDE 1000 ml 1,000 ML IV (22:08)
[2024-11-25] MEDS: KETOROLAC 30 MG/ML inj 15 MG IVP (22:08)
[2024-11-25] MEDS: ONDANSETRON 2 MG/ML inj 4 MG IVP (22:08)
[2024-11-25 22:30] VITALS: BP 118/51; PULSE 81; RESP 16; O2SAT 98
== END 2024-11-25 23:31 | disposition home or self-care (01) ==
PROVIDERS: Emergency Provider Emergency Medicine Emergency Medical Services
DX: K52.9 Noninfective gastroenteritis and colitis, unspecified (principal)
CPT/HCPCS: 87631; 96374; 96375; 99284; J1885; J2405; J7030

== ENCOUNTER 2025-03-09 18:20 | Emergency (ER) | payer MEDICAID, SELFPAY ==
--- OUTSIDE RECORDS SUMMARY | 2025-03-09 18:23 | XMS_ITS | Clinical Summary ---
Author Organization [employer] [facility] Address [address] [place] [id number] Care Team Providers Care Yarder Puncher Name Role Phone Farzana Silva DO Primary Care Provide r Allergies Active Allergy Reactions Criticality Noted Date Comments Atomoxetine Edema 03/07/2022 Ciprofloxacin Rash 06/06/2008 Ibuprofen Rash Medium 10/31/2006 Patient tolerates naproxen without any side effects. Cadence Caldera PA-C, Family Medicine.....................08/26/20 17 6:20 PM Medications albuterol HFA (PRO-AIR; VENTOLIN; PROVENTIL) 90 mcg/actuation inhalerIndication s:Mild intermittent asthma without complication (HC) Inhale 1-2 Puffs by mouth every 4 hours if needed for Shortness Of Breath or Wheezing. 1 Each 3 3 Active omeprazole 20 mg tabletIndications :Gastroesophageal reflux disease, unspecified whether esophagitis present Take 1 Tablet (20 mg) by mouth once daily. 90 Tablet 3 4 Active lisdexamfetamine (Vyvanse) 20 mg capsuleIndication s:ADHD (attention deficit hyperactivity disorder), combined type Take 1 Capsule (20 mg) by mouth once daily. 30 Capsule 5 Active hydrOXYzine HCL (ATARAX) 50 mg tabletIndications :Insomnia, idiopathic Take 50 mg at bedtime 90 Tablet 3 5 Active buPROPion (Wellbutrin XL) 150 mg Extended-Release tabletIndications :Major depressive disorder, recurrent episode, mild Take 1 Tablet (150 mg) by mouth once daily in the morning. 90 Tablet 3 5 Active busPIRone (BUSPAR) 15 mg tabletIndications :ELIZABETH (generalized anxiety disorder) Take 1 Tablet (15 mg) by mouth two times daily. 180 Tablet 3 5 Active topiramate (TOPAMAX) 100 mg tabletIndications :Migraine without aura and without status migrainosus, not intractable Take 1 Tablet (100 mg) by mouth at bedtime. 90 Tablet 1 5 Active cholecalciferol, Vitamin D3, 2,000 unit tabletIndications :Vitamin D deficiency Take 1 Tablet (2,000 units) by mouth once daily. 90 Tablet 1 5 Active lisdexamfetamine (Vyvanse) 20 mg capsuleIndication s:ADHD (attention deficit hyperactivity disorder), combined type Take 1 Capsule (20 mg) by mouth once daily. 30 Capsule 5 025 Active lisdexamfetamine (Vyvanse) 20 mg capsuleIndication s:ADHD (attention deficit hyperactivity disorder), combined type Take 1 Capsule (20 mg) by mouth once daily. 30 Capsule 5 025 Active lisdexamfetamine (Vyvanse) 20 mg capsuleIndication s:ADHD (attention deficit hyperactivity disorder), combined type Take 1 Capsule (20 mg) by mouth once daily. 30 Capsule 5 Active cyclobenzaprine 10 mg tabletIndications :Back pain, unspecified back location, unspecified back pain laterality, unspecified chronicity Take 1 Tablet (10 mg) by mouth 3 times daily if needed for Muscle Spasm. 10 Tablet 5 Active drospirenone-ethi nyl estradioL 3-0.02 mg tabletIndications :Encounter for contraceptive management, unspecified type Take 1 Tablet by mouth once daily. 84 Tablet 3 5 Active ondansetron (Zofran) 4 mg tablet Take 8 mg by mouth two times daily. 025 Discontin ued(*Tali ent states no longer taking) Active Problems Problem Noted Date Diagnosed Date [...] 2 years. 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 Mild intermittent asthma without complication ELIZABETH (generalized [...] Encounters Date Type Department Care Team Description 03/09/2025 Nurse Triage [facility] [address] [place] [address] Farzana Silva, DO Medication Management; Headache 02/19/2025 1:04 PM CDT - 02/19/2025 2:34 PM CDT Emergency [facility] [address] [place] [address] Farzana Preston MD Right sided abdominal pain (Primary Dx) Discharge Disposition: Home Self Care 02/19/2025 Travel 02/15/2025 10:52 PM CDT - 02/15/2025 11:26 PM CDT Emergency [facility] [address] [place] [address] Yrn Andrade MD Back pain, unspecified back location, unspecified back pain laterality, unspecified chronicity (Primary Dx) Discharge Disposition: Home Self Care 02/15/2025 Travel 02/15/2025 Telephone [facility] [address] [place] [address] Farzana Silva, 02/14/2025 7:15 AM CDT - 02/14/2025 11:59 PM CDT Hospital Encounter [facility] [address] [facility] [place] [address] Farzana Silva, IUD check up; Intrauterine contraceptive device threads lost, initial encounter 02/14/2025 Travel 02/08/2025 10:00 AM CDT Office Visit [facility] [address] [place] [address] Farzana Silva, Medication Management 02/08/2025 Travel 01/24/2025 Telephone [facility] [address] [place] [address] Farzana Silva, Error-please disregard 12/27/2024 Telephone [facility] [address] [place] [address] Farzana Silva, Error-please disregard from Last 3 Months Immunizations Immunization Administration Dates Next Due COVID-19 vaccine ([employer] 30mcg/0.3mL) 12YO+ GERALDINE-SUCROSE PF, MDV 11/22/2022 DTaP 10/05/2007, 1,09/15/1990,1987,04/06/1986,1985 Hepatitis B (Adult) 03/26/2006,04/25/2005,2004 Hepatitis B, Unspecified 03/26/2006,04/25/2005,0 03/18/2005 INFLUENZA, IIV3 PF (AGE >= 6 MO) 11/26/2024 Influenza A (H1N1), Inactiva michele (Age >=3 [...] PHQ-2 Answer Date Recorded PHQ-2 TOTAL SCORE 0 02/08/2025 Financial Resource Strain Answer Date R ecorded Difficulty of Paying Living Expenses Not on file 11/06/2021 Difficulty of Paying Living Expenses Not on file 11/06/2021 Interpersonal Safety Answer Date Record ed Are you being hit, kicked, p ushed or yelled at (see row info)? 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 Gender Identity Not on file Sexual Orientation [...] Sign Reading Time Taken Comments Blood Pressure 120/81 02/19/2025 1:06 PM CDT Pulse 84 02/19/2025 1:06 PM CDT Temperature 36.4 C (97.5 F) 02/19/2025 1:06 PM CDT Respiratory Rate 18 02/19/2025 1:06 PM CDT Oxygen Saturation 98% 02/19/2025 1:06 PM CDT Inhaled Oxygen Concentration - - Weight 93 kg (205 lb) 02/19/2025 1:06 PM CDT Height 172.7 cm (5' 8) 02/19/2025 1:06 PM CDT Body Mass Index 31.17 02/19/2025 1:06 PM CDT Plan of Treatment Upcoming Encounters Date Type Department Care Team (Late st Contact Info) Description 03/29/2025 11:00 AM CDT Office Visit [address] [place] [phone] Shelli Nowak, [address] [address] 05/11/2025 7:55 AM CDT Office Visit [address] [place] [address] Farzana Silva, [address] [place] [address] Health Maintenance Due Date Last Done Comments COVID-19 vaccine series ( season) 2024 11/22/2022 BMI (ht and wt on same day) for age 18+ 11/26/2025 11/26/2024, 12/27/2022, 11/22/2022, Additional history exists Depression screening for age 12+ 02/08/2026 02/08/2025, 11/26/2024, 10/26/2024, Additional history exists Pap test for age 21-65 09/02/2027 (Completed outside of [facility]), 05/18/2020, 05/18/2020, Additional history exists Tetanus booster 03/05/2034 03/05/2024, 04/2016, 03/10/2010, Additional history exists HIV for age 15-65 Completed 11/23/2014, 05/14/2012 Hepatitis C screening for age 18-79 Completed 11/23/2014, 05/14/2012 Tdap Completed 03/05/2024, 04/2016, 03/10/2010, Additional history exists Influenza Vaccine Completed 11/26/2024, , 11/22/2022, Additional history exists Pneumococcal series for age 6-49 Aged Out No longer eligible based on patient's age to complete this topic Procedures Procedure Name Priority Date/Time Associated Diagnosis Comments CT ABDOMEN PELVIS STONE PROTOCOL WO STAT 02/19/2025 1:48 PM CDT EXTRA TUBE LOGAN Today 02/19/2025 1:35 PM CDT ,SERUM QUALITATIVE CHASITY 02/19/2025 1:33 PM CDT BASIC METABOLIC PANEL STAT 02/19/2025 1:33 PM CDT CBC W PLT NO DIFF STAT 02/19/2025 1:3 3 PM CDT URINALYSIS MICROSCOPIC STAT 02/19/2025 1:32 PM CDT UA W/ SEDIMENT EXAM REFLEXED PER CRITERIA STAT 02/19/2025 1:32 PM CDT US PELVIS COMPLETE TA AND TV Routine 02/14/2025 8:11 AM CDT IUD check up Intrauterine contraceptive device threads lost, initial encounter TROMPER THIN PREP PAP SCREEN IMAGED Routine 05/18/2020 1:47 PM CDT Screening for malignant neoplasm of cervix ANTI HIV 1/2 Routine 11/23/2014 3:42 PM VOCATIONAL TRAINING INSTRUCTOR Screening examination for venereal disease ANTI HCV Routine 11/23/2014 3:42 PM VOCATIONAL TRAINING INSTRUCTOR Screening examination for venereal disease from Last 3 Months or Most Recently Relevant to Health Maintenance Results * CT ABDOMEN PELVIS STONE PROTOCOL WO (02/19/2025 1:48 PM CDT) Anatomical Region Laterality Modality Abdomen, Pelvis, AORTA, LIVER, SPLEEN Computed Tomography 02/19/2025 2:12 PM CDT Narrative 02/19/2025 2:12 PM CDT For Patients: As a result of the Cures Act, medical imaging exams and procedure reports are released immediately into your electronic medical record. You may view this report before your referring provider. If you have questions, please contact your health care provider. INDICATION: Right flank pain. Stone suspected. Technique: CT abdomen and pelvis without contrast Comparison: None Findings: Liver: 1.7 centimeter subcapsular hypodensity right lobe inferiorly. Several smaller hepatic hypodensities. Gallbladder and bile ducts: Unremarkable. No dilation. Pancreas: Unremarkable. Spleen: Normal in caliber. No masses. Adrenal glands: Unremarkable. No masses. Kidneys: No obstruction. No masses. No calculi. GI tract: Normal in caliber and appearance. No sign of mass or inflammation. Appendix: No acute appendicitis. Lymph nodes: No lymphadenopathy. Aorta and vessels: No aneurysm or severe stenosis. Omentum/peritoneum/retroperitoneum: No masses or infiltration. No free air or significant free fluid. Pelvic organs: Central uterine IUD. Bladder: No calculi or focal wall thickening. Bones: No fractures or suspicious bone lesions. Soft Tissues: No mass lesions or significant hernias. Impression: 1. No renal calculi or urinary obstruction. 2. 1.7 centimeter right hepatic hypodensity along with several small hypodensities. Findings are nonspecific and could further be characterized with a dynamic enhanced hepatic MRI. Please note that all CT scans at this facility use dose modulation, iterative reconstruction, and/or weight-based dosing when appropriate to reduce radiation dose to as low as reasonably achievable. Dictated by Diego Danielle MD @ 02/19/2025 2:12:12 PM (Electronically Signed) Procedure Note Diego Danielle MD - 02/19/2025 For Patients: As a result of the Cures Act, medical imagingexams and procedure reports are released immediately into your electronicmedical record. You may view this report before your referring provider.If you have questions, please contact your health care provider. INDICATION: Right flank pain. Stone suspected. Technique: CT abdomen and pelvis without contrast Comparison: None Findings: Liver: 1.7 centimeter subcapsular hypodensity right lobe inferiorly.Several smaller hepatic hypodensities. Gallbladder and bile ducts: Unremarkable. No dilation. Pancreas: Unremarkable. Spleen: Normal in caliber. No masses. Adrenal glands: Unremarkable. No masses. Kidneys: No obstruction. No masses. No calculi. GI tract: Normal in caliber and appearance. No sign of mass orinflammation. Appendix: No acute appendicitis. Lymph nodes: No lymphadenopathy. Aorta and vessels: No aneurysm or severe stenosis. Omentum/peritoneum/retroperitoneum: No masses or infiltration. No free airor significant free fluid. Pelvic organs: Central uterine IUD. Bladder: No calculi or focal wall thickening. Bones: No fractures or suspicious bone lesions. Soft Tissues: No mass lesions or significant hernias. Impression: 1. No renal calculi or urinary obstruction. 2. 1.7 centimeter right hepatic hypodensity along with several smallhypodensities. Findings are nonspecific and could further be characterizedwith a dynamic enhanced hepatic MRI. Please note that all CT scans at this facility use dose modulation,iterative reconstruction, and/or weight-based dosing when appropriate toreduce radiation dose to as low as reasonably achievable. Dictated by Diego Danielle MD @ 02/19/2025 2:12:12 PM (Electronically Signed) Farzana Preston MD CT Final Result * EXTRA TUBE LOGAN (02/19/2025 1:35 PM CDT) Blood BLOOD SPECIMEN / Unknown Extra Tube / Unknown 02/19/2025 1:35 PM CDT 02/19/2025 1:48 PM CDT Farzana Preston MD LABORATORY Final Result [facility] [address] [place] [address] * ,SERUM QUALITATIVE (02/19/2025 1:33 PM CDT) Pathologist [facility] ,SERU M Negative Negative 02/19/2025 2:33 PM CDT [facility] Blood BLOOD SPECIMEN / Unknown Venipuncture / Unknown 02/19/2025 1:33 PM CDT 02/19/2025 1:36 PM CDT Farzana Preston MD CHEMISTRY Final Result Performing Organization Address City/[facility]/ZIP Co de Phone Number [facility] [address] [place] [address] * CBC W PLT NO DIFF (02/19/2025 1:33 PM CDT) [facility] WHITE BLOOD COUNT 6.3 4.5 - 11.0 thou/cu mm 02/19/2025 1:39 PM [facility] RED BLOOD COUNT 5.05 4.00 - 5.20 mil/cu mm 02/19/2025 1:39 PM [facility] HEMOGLOBIN 14.3 12.0 - 16.0 g/dL 02/19/2025 1:39 PM [facility] HEMATOCRIT 43.7 33.0 - 51.0 % 02/19/2025 1:39 PM [facility] MCV 87 80 - 100 fL 02/19/2025 1:39 PM [facility] MCH 28.3 26.0 - 34.0 pg 02/19/2025 1:39 PM [facility] MCHC 32.7 32.0 - 36.0 g/dL 02/19/2025 1:39 PM [facility] RDW 15.0 11.5 - 15.5 % 02/19/2025 1:39 PM T [facility] PLATELET COUNT 324 140 - 440 thou/cu mm 02/19/2025 1:39 PM T [facility] MPV 8.8 6.5 - 11.0 fL 02/19/2025 1:39 PM T [facility] Blood BLOOD SPECIMEN / Unknown Venipuncture / Unknown 02/19/2025 1:33 PM CDT 02/19/2025 1:36 PM CDT us aFrzana Preston MD HEMATOLOGY Final Result [facility] [address] [place] [address] * (ABNORMAL) BASIC METABOLIC PANEL (02/19/2025 1:33 PM CDT) SODIUM 138 136 - 145 mmol/L 02/19/2025 1:54 PM [facility] POTASSIUM 4.0 3.5 - 5.1 mmol/L 02/19/2025 1:54 PM [facility] CHLORIDE 107 98 - 107 mmol/L 02/19/2025 1:54 PM [facility] CO2,TOTAL 23 22 - 29 mmol/L 02/19/2025 1:54 PM [facility] ANION GAP 8 5 - 18 02/19/2025 1:54 PM [facility] GLUCOSE 101(H) 70 - 99 mg/dL 02/19/2025 1:54 PM [facility] CALCIUM 9.2 8.8 - 10.4 mg/dL 02/19/2025 1:54 PM [facility] Comment: Reference ranges for this test were updated on 09/14/2024 to reflect our healthy population more accurately. Reference range changes are not retroactively applied to results, but previous results using the same methodology can be interpreted in the context of the new reference range. BUN 11 6 - 20 mg/dL 02/19/2025 1:54 PM [facility] CREATININE 0.97(H) 0.50 - 0.90 mg/dL 02/19/2025 1:54 PM CDT [facility] BUN/CREAT RATIO 11 10 - 20 1:54 PM CDT [facility] eGFR 76(L) >90 mL/min/1. 73m2 02/19/2025 1:54 PM CDT [facility] Comment:As of 2022, eG FR is calculated by the CKD-EPI creatinine equation without race adjustment. eGFR can be influenced by muscle mass, exercise, and diet. The reported eGFR is an estimation only and is only applicable if the renal function is stable. Blood BLOOD SPECIMEN / Unknown Venipuncture / Unknown 02/19/2025 1:33 PM CDT 02/19/2025 1:36 PM CDT Farzana Preston MD CHEMISTRY Final Result Performing Organization Address [facility] de Phone Number [facility] [address] [place] [phone] * (ABNORMAL) URINALYSIS MICROSCOPIC (02/19/2025 1:32 PM CDT) RBC 3-5(A) 0-2, None Seen /HPF 02/19/2025 1:45 PM CDT [facility] WBC None Seen 0-2, 3-5, None Seen /HPF 02/19/2025 1:45 PM CDT [facility] BACTERIA None Seen None Seen, Rare, Few Bacteria/ HPF 02/19/2025 1:45 PM CDT [facility] EPITHELIAL CELLS Few None Seen, Few Epi/HPF 02/19/2025 1:45 PM CDT [facility] Urine URINE SPECIMEN / Unknown Non-Blood / Unknown 02/19/2025 1:32 PM CDT 02/19/2025 1:35 PM CDT Farzana Preston MD URINE Final Result Performing Organization Address [facility] de Phone Number [facility] [address] [place] [address] * (ABNORMAL) UA W/ SEDIMENT EXAM REFLEXED PER CRITERIA (02/19/2025 1:32 PM CDT) COLOR Yellow Yellow Color 02/19/2025 1:43 PM T [facility] CLARITY Clear Clear Clarity 02/19/2025 1:43 PM T [facility] SPECIFIC GRAVITY,URINE 1.020 1.010, 1.015, 1.020, 1.025 02/19/2025 1:43 PM CDT [facility] PH,URINE 6.0 6.0, 7.0, 8.0, 5.5, 6.5, 7.5, 8.5 02/19/2025 1:43 PM [facility] UROBILINOGEN, QUALITATIVE Normal Normal EU/dl 02/19/2025 1:43 PM [facility] PROTEIN, URINE Negative Negative mg/dL 02/19/2025 1:43 PM T [facility] GLUCOSE, URINE Negative Negative mg/dL 02/19/2025 1:43 PM T [facility] KETONES,URINE Negative Negative mg/dL 02/19/2025 1:43 PM T [facility] BILIRUBIN,URI NE Negative Negative 02/19/2025 1:43 PM [facility] OCCULT BLOOD,URINE Moderate(A) Negative 02/19/2025 1:43 PM [facility] NITRITE Negative Negative 02/19/2025 1:43 PM T [facility] LEUKOCYTE ESTERASE Negative Negative 02/19/2025 1:43 PM [facility] Urine URINE SPECIMEN / Unknown Non-Blood / Unknown 02/19/2025 1:32 PM CDT 02/19/2025 1:35 PM CDT us Farzana Preston MD URINE Final Result [facility] [address] [place] [address] * US PELVIS COMPLETE TA AND TV (02/14/2025 8:11 AM CDT) Anatomical Region Laterality Modality Pelvis Ultrasound 02/14/2025 8:26 AM CDT Impressions 02/14/2025 8:26 AM CDT Normal pelvic ultrasound. IUD is centrally positioned. Dictated by Oscar Simons MD @ 02/14/2025 8:26:39 AM (Electronically Signed) Narrative 02/14/2025 8:26 AM CDT For Patients: As a result of the Cures Act, medical imaging exams and procedure reports are released immediately into your electronic medical record. You may view this report before your referring provider. If you have questions, please contact your health care provider. INDICATION: IUD checkup. Thread loss TECHNIQUE: Ultrasound pelvis transabdominal and transvaginal for better assessment or to better visualize the endometrium. Real-time sonographic images with spectral and color Doppler imaging of the ovaries were obtained. COMPARISON: None FINDINGS: Uterus: 8.3 x 5.5 x 5.3 cm. Normal echotexture of the myometrium. No masses. Endometrium: 10 mm in thickness. IUD is centrally positioned. No sign of endometrial mass or fluid. Right ovary: 3.6 x 1.6 x 1.4 cm. No ovarian or adnexal masses. Normal arterial and venous blood flow. Left ovary: 3.9 x 2.5 x 1.9 cm. No ovarian or adnexal masses. Normal arterial and venous blood flow. Cul-de-sac: No significant free fluid. Procedure Note Zheng Simons MD - 02/14/2025 For Patients: As a result of the Cures Act, medical imagingexams and procedure reports are released immediately into your electronicmedical record. You may view this report before your referring provider.If you have questions, please contact your health care provider. INDICATION: IUD checkup. Thread loss TECHNIQUE: Ultrasound pelvis transabdominal and transvaginal for better assessment orto better visualize the endometrium. Real-time sonographic images withspectral and color Doppler imaging of the ovaries were obtained. COMPARISON: None FINDINGS: Uterus: 8.3 x 5.5 x 5.3 cm. Normal echotexture of the myometrium. Nomasses. Endometrium: 10 mm in thickness. IUD is centrally positioned. No sign ofendometrial mass or fluid. Right ovary: 3.6 x 1.6 x 1.4 cm. No ovarian or adnexal masses. Normalarterial and venous blood flow. Left ovary: 3.9 x 2.5 x 1.9 cm. No ovarian or adnexal masses. Normalarterial and venous blood flow. Cul-de-sac: No significant free fluid. IMPRESSION: Normal pelvic ultrasound. IUD is centrally positioned. Dictated by Oscar Simons MD @ 02/14/2025 8:26:39 AM (Electronically Signed) us Farzana Silva DO US Final Result * TROMPER THIN PREP PAP SCREEN IMAGED (05/18/2020 1:47 PM CDT) Case Report Gynecologic Cytology Report Case: [id number] Authorizing Provider: Cadence Caldera PA Collected: 05/18/2020 [facility] Ordering Location: [employer] [place] Received: 05/18/2020 [facility] Clinic First Screen: Nelia Díaz Specimen: TROMPER ThinPrep Vial Screening, Cervical 05/23/2020 10:50 AM CDT [facility] INTERPRETATION/ RESULT NEGATIVE FOR INTRAEPITHELIAL LESION OR MALIGNANCY (NIL) (none) 05/23/2020 10:50 AM CDT [facility] at 1050 CDT ORGANISM(S) Shift in john suggestive of bacterial vaginosis 05/23/2020 10:50 AM CDT [facility] SPECIMEN ADEQUACY Satisfactory for evaluation Endocervical component present 05/23/2020 10:50 AM CDT [facility] HPV REQUEST HPV if ASCUS 05/23/2020 10:50 AM CDT [facility] Date of LMP 04/24/2020 05/23/2020 10:50 AM CDT [facility] Last Pap Date 08/14/16 05/23/2020 10:50 AM CDT [facility] Last Pap Result NIL 0 10:50 AM CDT [facility] Abnormal Pap or [place] Bx in last 5 years No 05/23/2020 10:50 AM CDT [facility] Menstrual Status Regular Periods 05/23/2020 10:50 AM CDT [facility] [place] Bx Done Today No 05/23/2020 10:50 AM CDT [facility] Additional Information None given 05/23/2020 10:50 AM CDT [facility] Comment: Cytology is screened at [facility] - [address], [place] [address] and [facility] - [address], [place] [address] and [facility] - [address] [place] [address] Interpreted at [facility] - [address], [place] [address] Automated Review Successful 05/23/2020 10:50 AM CDT [facility] Comment:Specimen processed s uccessfully by automated weapons and tactics instructor device, ThinPrep Imaging System, [employer] Note The pap test is a [...] and malignant lesions. 05/23/2020 10:50 AM CDT [facility] Other (Cervical) Non-Blood / Unknown 05/18/2020 1:47 PM CDT 05/18/2020 1:47 PM CDT us Cadence [facility]LLIER PATHOLOGY/CYTOLOGY Final R esult [facility] [address] [place] [address], [place] * ANTI HCV (11/23/2014 3:42 PM VOCATIONAL TRAINING INSTRUCTOR) HEPATITIS C ANTIBODY Non-Reacti ve Non-Reacti ve 11/24/2014 4:25 PM VOCATIONAL TRAINING INSTRUCTOR [facility] Blood specimen (specimen) BLOOD SPECIMEN / Unknown Venipuncture / Unknown 11/23/2014 3:42 PM VOCATIONAL TRAINING INSTRUCTOR 11/23/2014 3:42 PM VOCATIONAL TRAINING INSTRUCTOR Narrative [facility] - 11/24/2014 4:25 PM VOCATIONAL TRAINING INSTRUCTOR Antibodies to HCV not detected; does not exclude the possibility of exposure to HCV. Aimee Tuttle SHEEP STICKER SEND OUTS Final Result [facility] [address] [place] [address], * ANTI HIV 1/2 (11/23/2014 3:42 PM VOCATIONAL TRAINING INSTRUCTOR) Pathologist [facility] HIV-1/HIV-2 ANTIBODY Non-Reacti ve Non-Reacti ve 11/24/2014 4:33 PM VOCATIONAL TRAINING INSTRUCTOR [facility] Blood specimen (specimen) BLOOD SPECIMEN / Unknown Venipuncture / Unknown 11/23/2014 3:42 PM VOCATIONAL TRAINING INSTRUCTOR 11/23/2014 3:42 PM VOCATIONAL TRAINING INSTRUCTOR Narrative [facility] - 11/24/2014 4:33 PM VOCATIONAL TRAINING INSTRUCTOR HIV-1 p24 and HIV-1/HIV-2 Ab not detected Aimee Tuttle NP SEND OUTS Final Result [facility] [address] [place] [address], from Last 3 Months or Most Recently Relevant to Health Maintenance Insurance [facility] INDIVIDUAL AND FAMILY PLANS [facility] [place] * Guarantor: MARI PICKENS Account Type Relation to Patient Date of Phone Billing Address Personal/Family [address] [place] [address] * Guarantor: [employer] ONLY Account Type Relation to Patient Date of Phone Billing Address [facility] [address] [id number] [address] [place] [address] Care Teams Yarder Puncher Relationship Specialty Start Date End Date Farzana Silva DO [address] [facility] [place] [address] PCP - General Family Practice 10/26/24
[2025-03-09 18:27] VITALS: BP 132/83; PULSE 82; RESP 16; TEMP 36.9; O2SAT 100; BMI 32.1
--- OUTSIDE RECORDS SUMMARY | 2025-03-09 19:07 | XMS_ITS | Clinical Summary ---
Author Organization [facility] Address [address] [place] [address] Care Team Providers Care Welfare Worker Name Role Phone Farzana Silva DO Primary [...] 2 years. 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 Moderate episode of [...] Department Care Team Description 03/09/2025 Nurse Triage [facility] [address] [place] [address] Farzana Silva, DO Medication Management; Headache 02/19/2025 1:04 PM CDT - 02/19/2025 2:34 PM CDT Emergency [facility] [address] [place] [address] Farzana Preston MD Right sided abdominal pain (Primary Dx) Discharge Disposition: Home Self Care 02/19/2025 Travel 02/15/2025 10:52 PM CDT - 02/15/2025 11:26 PM CDT Emergency [facility] [address] [place] [address] Yrn Andrade MD Back pain, unspecified back location, unspecified back pain laterality, unspecified chronicity (Primary Dx) Discharge Disposition: Home Self Care 02/15/2025 Travel 02/15/2025 Telephone [facility] [address] [place] [address] Farzana Silva, 02/14/2025 7:15 AM CDT - 02/14/2025 11:59 PM CDT Hospital Encounter [facility] [address] [facility] [place] [address] Farzana Silva, IUD check up; Intrauterine contraceptive device threads lost, initial encounter 02/14/2025 Travel 02/08/2025 10:00 AM CDT Office Visit [facility] [address] [place] [address] Farzana Silva, Medication Management 02/08/2025 Travel 01/24/2025 Telephone [facility] [address] [place] [address] Farzana Silva, Error-please disregard 12/27/2024 Telephone [facility] [address] [place] [address] Farzana Silva, Error-please disregard from Last 3 Months Immunizations Immunization Administration Dates Next Due COVID-19 vaccine (Endra-Bio NTech 30mcg/0.3mL) 12YO+ GERALDINE-SUCROSE PF, MDV 11/22/2022 [...] on file Legal Sex Female 6:29 AM PRICE CHANGER Gender Identity Not on file Sexual Orientation [...] Description 03/29/2025 11:00 AM CDT Office Visit [address] [place] [phone] Shelli Nowak, [address] [address] 05/11/2025 7:55 AM CDT Office Visit [address] [place] [address] Farzana Silva, [address] [place] [address] Health Maintenance Due Date Last Done Comments COVID-19 vaccine series ( season) 2024 11/22/2022 BMI (ht and wt on same day) for age 18+ 11/26/2025 11/26/2024, 12/27/2022, 11/22/2022, Additional history exists Depression screening for age 12+ 02/08/2026 02/08/2025, 11/26/2024, 10/26/2024, Additional history exists Pap test for age 21-65 09/02/2027 (Completed outside of [facility]), 05/18/2020, 05/18/2020, Additional history exists Tetanus booster [...] Intrauterine contraceptive device threads lost, initial encounter OFFICE MESSENGER HELPER THIN PREP PAP SCREEN IMAGED Routine 05/18/2020 1:47 PM CDT Screening for malignant neoplasm of cervix ANTI HIV 1/2 Routine 11/23/2014 3:42 PM PRICE CHANGER Screening examination for venereal disease ANTI HCV Routine 11/23/2014 3:42 PM PRICE CHANGER Screening examination for venereal disease from Last [...] CDT Farzana Preston MD LABORATORY Final Result [facility] [address] [place] [address] * ,SERUM QUALITATIVE (02/19/2025 1:33 PM CDT) Pathologist [facility] ,SERU M Negative Negative 02/19/2025 2:33 PM CDT [facility] Blood BLOOD SPECIMEN / Unknown Venipuncture / Unknown 02/19/2025 1:33 PM CDT 02/19/2025 1:36 PM CDT Farzana Preston MD CHEMISTRY Final Result Performing Organization Address City/[facility]/ZIP Co de Phone Number [facility] [address] [place] [address] * CBC W PLT NO DIFF (02/19/2025 1:33 PM CDT) [facility] WHITE BLOOD COUNT 6.3 4.5 - 11.0 thou/cu mm 02/19/2025 1:[address] [facility] RED BLOOD COUNT 5.05 4.00 - 5.20 mil/cu mm 02/19/2025 1:[address] [facility] HEMOGLOBIN 14.3 12.0 - 16.0 g/dL 02/19/2025 1:[address] [facility] HEMATOCRIT 43.7 33.0 - 51.0 % 02/19/2025 1:[address] [facility] MCV 87 80 - 100 fL 02/19/2025 1:[address] [facility] MCH 28.3 26.0 - 34.0 pg 02/19/2025 1:[address] [facility] MCHC 32.7 32.0 - 36.0 g/dL 02/19/2025 1:[address] [facility] RDW 15.0 11.5 - 15.5 % 02/19/2025 1:39 PM T [facility] PLATELET COUNT 324 140 - 440 thou/cu mm 02/19/2025 1:39 PM T [facility] MPV 8.8 6.5 - 11.0 fL 02/19/2025 1:39 PM T [facility] Blood BLOOD SPECIMEN / Unknown Venipuncture / Unknown 02/19/2025 1:33 PM CDT 02/19/2025 1:36 PM CDT us Farzana Preston MD HEMATOLOGY Final Result [facility] [address] [place] [address] * (ABNORMAL) BASIC METABOLIC PANEL (02/19/2025 1:33 PM CDT) SODIUM 138 136 - 145 mmol/L 02/19/2025 1:[address] [facility] POTASSIUM 4.0 3.5 - 5.1 mmol/L 02/19/2025 1:[address] [facility] CHLORIDE 107 98 - 107 mmol/L 02/19/2025 1:[address] [facility] CO2,TOTAL 23 22 - 29 mmol/L 02/19/2025 1:[address] [facility] ANION GAP 8 5 - 18 02/19/2025 1:[address] [facility] GLUCOSE 101(H) 70 - 99 mg/dL 02/19/2025 1:[address] [facility] CALCIUM 9.2 8.8 - 10.4 mg/dL 02/19/2025 1:[address] [facility] Comment: Reference ranges for this test were updated on 09/14/2024 to reflect our healthy population more accurately. Reference range changes are not retroactively applied to results, but previous results using the same methodology can be interpreted in the context of the new reference range. BUN 11 6 - 20 mg/dL 02/19/2025 1:[address] [facility] CREATININE 0.97(H) 0.50 - 0.90 mg/dL 02/19/2025 1:54 PM CDT [facility] BUN/CREAT RATIO 11 10 - 20 1:54 PM CDT [facility] eGFR 76(L) >90 mL/min/1. 73m2 02/19/2025 1:54 PM CDT [facility] Comment:As of 2022, eG FR [...] MD CHEMISTRY Final Result Performing Organization Address [facility] de Phone Number [facility] [address] [place] [phone] * (ABNORMAL) URINALYSIS MICROSCOPIC (02/19/2025 1:32 PM CDT) RBC 3-5(A) 0-2, None Seen /HPF 02/19/2025 1:45 PM CDT [facility] WBC None Seen 0-2, 3-5, None Seen /HPF 02/19/2025 1:45 PM CDT [facility] BACTERIA None Seen None Seen, Rare, Few Bacteria/ HPF 02/19/2025 1:45 PM CDT [facility] EPITHELIAL CELLS Few None Seen, Few Epi/HPF 02/19/2025 1:45 PM CDT [facility] Urine URINE SPECIMEN / Unknown Non-Blood / Unknown 02/19/2025 1:32 PM CDT 02/19/2025 1:35 PM CDT Farzana Preston MD URINE Final Result Performing Organization Address [facility] de Phone Number [facility] [address] [place] [address] * (ABNORMAL) UA W/ SEDIMENT EXAM REFLEXED PER CRITERIA (02/19/2025 1:32 PM CDT) COLOR Yellow Yellow Color 02/19/2025 1:43 PM T [facility] CLARITY Clear Clear Clarity 02/19/2025 1:43 PM T [facility] SPECIFIC GRAVITY,URINE 1.020 1.010, 1.015, 1.020, 1.025 02/19/2025 1:43 PM CDT [facility] PH,URINE 6.0 6.0, 7.0, 8.0, 5.5, 6.5, 7.5, 8.5 02/19/2025 1:[address] [facility] UROBILINOGEN, QUALITATIVE Normal Normal EU/dl 02/19/2025 1:[address] [facility] PROTEIN, URINE Negative Negative mg/dL 02/19/2025 1:43 PM T [facility] GLUCOSE, URINE Negative Negative mg/dL 02/19/2025 1:43 PM T [facility] KETONES,URINE Negative Negative mg/dL 02/19/2025 1:43 PM T [facility] BILIRUBIN,URI NE Negative Negative 02/19/2025 1:[address] [facility] OCCULT BLOOD,URINE Moderate(A) Negative 02/19/2025 1:[address] [facility] NITRITE Negative Negative 02/19/2025 1:43 PM T [facility] LEUKOCYTE ESTERASE Negative Negative 02/19/2025 1:[address] [facility] Urine URINE SPECIMEN / Unknown Non-Blood / Unknown 02/19/2025 1:32 PM CDT 02/19/2025 1:35 PM CDT us Farzana Preston MD URINE Final Result [facility] [address] [place] [address] * US PELVIS COMPLETE TA AND TV [...] Farzana Silva DO US Final Result * OFFICE MESSENGER HELPER THIN PREP PAP SCREEN IMAGED (05/18/2020 1:47 PM CDT) Case Report Gynecologic Cytology Report Case: [id number] Authorizing Provider: Cadence Caldera PA Collected: 05/18/2020 [id number] Ordering Location: [employer] [place] Received: 05/18/2020 [id number] First Screen: Nelia Díaz Specimen: OFFICE MESSENGER HELPER ThinPrep Vial Screening, Cervical 05/23/2020 10:50 AM CDT [facility] INTERPRETATION/ RESULT NEGATIVE FOR INTRAEPITHELIAL LESION OR MALIGNANCY (NIL) (none) 05/23/2020 10:50 AM CDT [facility] at 1050 CDT ORGANISM(S) Shift in john suggestive of bacterial vaginosis 05/23/2020 10:50 AM CDT [facility] SPECIMEN ADEQUACY Satisfactory for evaluation Endocervical component present 05/23/2020 10:50 AM CDT [facility] HPV REQUEST HPV if ASCUS 05/23/2020 10:50 AM CDT [facility] Date of LMP 04/24/2020 05/23/2020 10:50 AM CDT [facility] Last Pap Date 08/14/16 05/23/2020 10:50 AM CDT [facility] Last Pap Result NIL 0 10:50 AM CDT [facility] Abnormal Pap or [place] Bx in last 5 years No 05/23/2020 10:50 AM CDT [facility] Menstrual Status Regular Periods 05/23/2020 10:50 AM CDT [facility] [place] Bx Done Today No 05/23/2020 10:50 AM CDT [facility] Additional Information None given 05/23/2020 10:50 AM CDT [facility] Comment: Cytology is screened at [facility] - [address], [place] [address] and [facility] - [address], [place] [address] and [facility] - [address] [place] [address] Interpreted at [facility] - [address], [place] [address] Automated Review Successful 05/23/2020 10:50 AM CDT [facility] Comment:Specimen processed s uccessfully by automated practicing dermatologist device, ThinPrep Imaging System, [employer] Note The pap test is a [...] and malignant lesions. 05/23/2020 10:50 AM CDT [facility] Other (Cervical) Non-Blood / Unknown 05/18/2020 1:47 PM CDT 05/18/2020 1:47 PM CDT us Cadence COLLIER PATHOLOGY/CYTOLOGY Final R esult [facility] [address] [place] [address], [place] * ANTI HCV (11/23/2014 3:42 PM PRICE CHANGER) HEPATITIS C ANTIBODY Non-Reacti ve Non-Reacti ve 11/24/2014 4:25 PM PRICE CHANGER [facility] Blood specimen (specimen) BLOOD SPECIMEN / Unknown Venipuncture / Unknown 11/23/2014 3:42 PM PRICE CHANGER 11/23/2014 3:42 PM PRICE CHANGER Narrative [facility] - 11/24/2014 4:25 PM PRICE CHANGER Antibodies to HCV not detected; does not exclude the possibility of exposure to HCV. Aimee Tuttle BUTCHER FISH SEND OUTS Final Result [facility] [address] [place] [address], * ANTI HIV 1/2 (11/23/2014 3:42 PM PRICE CHANGER) Pathologist [facility] HIV-1/HIV-2 ANTIBODY Non-Reacti ve Non-Reacti ve 11/24/2014 4:33 PM PRICE CHANGER [facility] Blood specimen (specimen) BLOOD SPECIMEN / Unknown Venipuncture / Unknown 11/23/2014 3:42 PM PRICE CHANGER 11/23/2014 3:42 PM PRICE CHANGER Narrative [facility] - 11/24/2014 4:33 PM PRICE CHANGER HIV-1 p24 and HIV-1/HIV-2 Ab not detected Aimee Tuttle NP SEND OUTS Final Result [facility] [address] [place] [address], from Last 3 Months or Most Recently Relevant to Health Maintenance Insurance [facility] INDIVIDUAL AND FAMILY PLANS [facility] [place] * Guarantor: MARI PICKENS Account Type Relation to Patient Date of Phone Billing Address Personal/Family [address] [place] [address] * Guarantor: [employer] ONLY Account Type Relation to Patient Date of Phone Billing Address [facility] [address] [id number] [address] [place] [address] Care Teams Welfare Worker Relationship Specialty Start Date End Date Farzana Silva DO [address] [place] [place] [address] PCP - General Family Practice 10/26/24
== END 2025-03-09 19:09 | disposition left against medical advice (07) ==
LOC: ED 19:06
DX: Z53.21 Procedure and treatment not carried out due to patient leaving prior to being seen by health care provider (principal)